=== PATIENT | female | born 1985 | race Two or more races ===

== ENCOUNTER 2016-12-05 16:20 | Emergency (ER) | payer MEDICAID ==
[~2016-12-05] VITALS: Ht 167.6 cm; Wt 108.9 kg
[2016-12-05 18:08] LABS: Urine Bilirubin Negative (Negative); Urine Blood TRACE /uL (Negative); Urine Color Yellow (Yellow); Urine Glucose Normal (Normal); Urine Ketone TRACE (Negative); Urine Nitrite Negative (Negative); Urine RBC 4 /hpf (0 - 4); Urine Squamous Epithelial Cell FEW /hpf (<5); Urine Urobilinogen Normal (Negative); Urine pH 5.5 (5.0-8.0)
[2016-12-05 18:32] VITALS: BP 140/93
[2016-12-05] MEDS ORDERED: IBUPROFEN 600 MG TAB PO ONE (19:30)
[2016-12-05] MEDS ORDERED: BACLOFEN 10 MG TAB PO ONE (19:30)
== END 2016-12-05 19:47 | disposition home or self-care (01) ==
LOC: ER 16:26
DX: M54.6 Pain in thoracic spine (principal)
CPT/HCPCS: 81001; 81025